=== PATIENT | female | born 1990 | race Caucasian/White ===

== ENCOUNTER → 2022-08-25 15:07 | Outpatient (CLI) | payer OTHER, SELFPAY ==
--- NOTE | 2022-08-25 19:08 | DI.NM.S_ITS ---
DATE OF SERVICE: 08/25/2022 PROCEDURE: Exercise stress test. INDICATION: Chest pain. CARDIAC STRESS: Patient underwent exercise stress test under the supervision of an attending staff. The patient walked on Ganesh protocol for 10 minutes and 25 seconds, achieved maximum heart rate of 183, which was 97 percent of target heart rate. Resting blood pressure 130/80 mmHg. Peak blood pressure 180/80 mmHg. Achieved 12.8 METs of workload and TRUPTI -7 percent. Baseline rhythm was sinus. During stress, no convincing ischemic changes seen. No significant arrhythmias seen. No chest pain. The patient felt fatigue and winded. CONCLUSION: Exercise stress test is negative for inducible ischemia. Normal hemodynamic response. Functional aerobic impairment -7 percent with good exercise tolerance. No chest pain or significant arrhythmias. Overall, low- risk exercise stress test. ivaAida navarrete - GENO/carmen/kaiden doc#: [id number]/job#: [id number] dd: 08/25/2022 17:24:00 dt: 08/25/2022 18:49:00 DICTATING /COPIES TO: Jose Armando Rodriguez MD COPIES MNE: JANINA;
== END ==
PROVIDERS: Referring Provider Internal Medicine Cardiovascular Disease; Visit Provider Internal Medicine Cardiovascular Disease
DX: R07.9 Chest pain, unspecified (principal)
CPT/HCPCS: 93017